=== PATIENT | male | born 1990 | race Two or more races ===

== ENCOUNTER 2016-12-23 14:04 | Emergency (ER) | payer OTHER ==
[~2016-12-23] VITALS: Ht 172.7 cm; Wt 62.0 kg
[2016-12-23 14:07] VITALS: BP 120/84; PULSE 79; RESP 18; TEMP 98.6; O2SAT 98
[2016-12-23] MEDS ORDERED: ONDANSETRON HCL 4 MG/2 ML VIAL IV PUSH ONE (14:30)
[2016-12-23] MEDS ORDERED: SODIUM CHLOR 0.9% 1000 ML INJ 1,000 ML IV ONE (14:30)
[2016-12-23 14:47] LABS: AUTOMATED NEUTROPHIL # 6.4 TH/MM3 (1.8-7.7); BASOPHIL # 0.1 TH/MM3 (0-0.2); BASOPHIL % 1.7 % (0.0-2.0); EOSINOPHIL # 0.1 TH/MM3 (0-0.4); EOSINOPHIL % 1.1 % (0.0-4.0); HEMATOCRIT 48.3 % (39.0-51.0); LYMPH % 16.1 % (9.0-44.0); LYMPHOCYTE # 1.4 TH/MM3 (1.0-4.8); MEAN CELL VOLUME 87.9 FL (80.0-100.0); NEUT % 76.1 % (16.0-70.0); PLATELET COUNT 197 TH/MM3 (150-450); RED BLOOD COUNT 5.49 MIL/MM3 (4.50-5.90); RED CELL DISTRIBUTION WIDTH 13.1 % (11.6-17.2); WHITE BLOOD COUNT 8.4 TH/MM3 (4.0-11.0)
--- NOTE | 2016-12-23 14:48 | PD ---
HPI Chief Complaint: GI Complaint Time Seen by Provider: 14:14 Travel History International Travel<30 days: No Contact w/Intl Traveler<30days: [place] Country Traveled to: [place] Traveled to known affect area: No History of Present Illness HPI This is a 26-year-old male who presents to the emergency department with malaise , nonproductive cough, nausea, decreased appetite and one episode of loose stool today. He says he feels very fatigued and doesn't feel like he can eat anything, constant, moderate severity. He went to his school clinic and they gave him a medicine for cough that he says is not helping. He did travel to the [place] one week ago. He denies any abdominal pain. [facility] Past Medical History Medical History: Denies Significant Hx Influenza Vaccination: Yes Past Surgical History Surgical History: No Previous Surgery Social History Alcohol Use: Yes (OCCAS) Tobacco Use: No Substance Use: No Allergies-Medications (Allergen,Severity, Reaction): Coded Allergies: No Known Allergies (Unverified , 12/23/16) Reported Meds & Prescriptions Reported Meds & Active Scripts Active No Active Prescriptions or Reported Medications Review of Systems Except as stated in HPI: all other systems reviewed are Neg Physical Exam Narrative GENERAL:Well appearing, no acute distress SKIN: Warm and dry. HEAD: Atraumatic. Normocephalic. EYES: Pupils equal and round. No injection or drainage. ENT: Moist mucous membranes. No posterior pharyngeal erythema or exudates. NECK: Trachea midline. CARDIOVASCULAR: Regular rate and rhythm. No murmur appreciated. RESPIRATORY: Clear to auscultation. Breath sounds equal bilaterally. GASTROINTESTINAL: Abdomen soft, non-tender, nondistended. MUSCULOSKELETAL: No obvious deformities. NEUROLOGICAL: Awake and alert. No obvious cranial nerve deficits. Moving all extremities. PSYCHIATRIC: Appropriate mood and affect; insight and judgment normal. Data Data Last Documented VS Vital Signs Date Time Temp Pulse Resp B/P Pulse Ox O2 Delivery O2 Flow Rate FiO2 12/23/16 14:07 98.6 79 18 120/84 98 Orders Complete Blood Count With Diff (12/23/16 14:21) Comprehensive Metabolic Panel (12/23/16 14:21) ^ Insert Iv (12/23/16 14:21) Sodium Chlor 0.9% 1000 Ml Inj (Ns 1000 M (12/23/16 14:30) Ondansetron Inj (Zofran Inj) (12/23/16 14:30) Labs Laboratory Tests Test 12/23/16 14:40 White Blood Count 8.4 TH/MM3 Red Blood Count 5.49 MIL/MM3 Hemoglobin 15.9 GM/DL Hematocrit 48.3 % Mean Corpuscular Volume 87.9 FL Mean Corpuscular Hemoglobin 29.0 PG Mean Corpuscular Hemoglobin 33.0 % Concent Red Cell Distribution Width 13.1 % Platelet Count 197 TH/MM3 Mean Platelet Volume 9.3 FL Neutrophils (%) (Auto) 76.1 % Lymphocytes (%) (Auto) 16.1 % Monocytes (%) (Auto) 5.0 % Eosinophils (%) (Auto) 1.1 % Basophils (%) (Auto) 1.7 % Neutrophils # (Auto) 6.4 TH/MM3 Lymphocytes # (Auto) 1.4 TH/MM3 Monocytes # (Auto) 0.4 TH/MM3 Eosinophils # (Auto) 0.1 TH/MM3 Basophils # (Auto) 0.1 TH/MM3 CBC Comment DIFF FINAL Differential Comment Sodium Level 142 MEQ/L Potassium Level 4.1 MEQ/L Chloride Level 102 MEQ/L Carbon Dioxide Level 30.2 MEQ/L Anion Gap 10 MEQ/L Blood Urea Nitrogen 13 MG/DL Creatinine 0.89 MG/DL Estimat Glomerular Filtration 103 ML/MIN Rate Random Glucose 97 MG/DL Calcium Level 9.4 MG/DL Total Bilirubin 0.7 MG/DL Aspartate Amino Transf 20 U/L (AST/SGOT) Alanine Aminotransferase 23 U/L (ALT/SGPT) Alkaline Phosphatase 49 U/L Total Protein 7.0 GM/DL Albumin 3.9 GM/DL [facility] Medical Decision Making Medical Screen Exam Complete: Yes Emergency Medical Condition: Yes Interpretation(s) Afebrile, no tachycardia, normotensive No leukocytosis Electrolytes are reassuring Differential Diagnosis Dehydration, sepsis, electrolyte abnormality Narrative Course This is a 26-year-old male who presents to the emergency department with malaise. I suspect he has a viral syndrome. An IV was established and labs are obtained which were normal. He was given a liter of IV fluid and Zofran. He will be discharged on Zofran and cough suppressant. Diagnosis Primary Impression: Viral syndrome Patient Instructions: General Instructions Additional Instructions: If you develop severe chest pain, shortness of breath, sweating, lightheadedness , dizziness or difficulty breathing return to the emergency department immediately. Followup with your primary care physician in 2-3 days if your symptoms are not resolved. Med/Other Pt SpecificInfo: Prescription(s) given Scripts Promethazine-Codeine Liq 6.25-10 Mg/5 Ml Syrp5 Ml PO Q4H PRN (COUGH AND/OR COLD SYMPTOMS) #100 ML Prov:Verónica Black MD 12/23/16 Ondansetron Odt (Zofran Odt)4 Mg Tab4 Mg SL Q6HR PRN (Nausea/Vomiting) #10 TAB Prov:Verónica Black MD 12/23/16 Disposition: 01 DISCHARGE HOME Condition: Stable Verónica Black MD Dec 23, 2016 14:47
[2016-12-23 14:49] LABS: HEMO FLAGS DIFF FINAL
[2016-12-23 14:54] LABS: CHLORIDE 102 MEQ/L (98-107); POTASSIUM 4.1 MEQ/L (3.5-5.1); SODIUM (NA) 142 MEQ/L (136-145)
[2016-12-23 14:58] LABS: ANION GAP 10 MEQ/L (5-15); BICARBONATE 30.2 MEQ/L (21.0-32.0); BLOOD UREA NITROGEN 13 MG/DL (7-18)
[2016-12-23 15:01] LABS: ALT (GPT) 23 U/L (12-78); AST (GOT) 20 U/L (15-37); GLOMERULAR FILTRATION RATE 103 ML/MIN (>89)
[2016-12-23 15:02] LABS: TOTAL BILIRUBIN ADULT 0.7 MG/DL (0.2-1.0)
[2016-12-23 15:04] LABS: ALKALINE PHOSPHATASE 49 U/L (45-117)
[2016-12-23] MEDS ORDERED: ZOFR4TAB3 SL (15:07)
[2016-12-23] MEDS ORDERED: PROM6.256 PO (15:07)
[2016-12-23 15:22] VITALS: BP 120/74; PULSE 80; RESP 18; O2SAT 100
== END 2016-12-23 15:33 | disposition home or self-care (01) ==
LOC: PHED 14:04
DX: B34.9 Viral infection, unspecified (principal); R53.81 Other malaise; R05 Cough; R11.0 Nausea; R53.83 Other fatigue
CPT/HCPCS: 80053; 85025; 96374; 99283; J2405; J7030